=== PATIENT | male | born 1990 | race Caucasian/White ===

== ENCOUNTER 2017-07-17 14:27 | Emergency (ER) | payer OTHER ==
[~2017-07-17] VITALS: Ht 167.6 cm; Wt 100.0 kg
[2017-07-17] MEDS ORDERED: ADDERALL30 MG PO (14:56)
[2017-07-17] MEDS ORDERED: [UNRECOGNIZED DRUG - REMARK] PO (14:57)
[2017-07-17] MEDS ORDERED: ANXIETY MED PO (14:58)
[2017-07-17 15:57] VITALS: BP 135/64
== END 2017-07-17 16:03 | disposition home or self-care (01) | DRG 103 ==
LOC: ED 14:27
DX: R51 Headache (principal); F17.290 Nicotine dependence, other tobacco product, uncomplicated; F99 Mental disorder, not otherwise specified; F90.9 Attention-deficit hyperactivity disorder, unspecified type; W55.22XA Struck by cow, initial encounter; Y92.79 Other farm location as the place of occurrence of the external cause; Y99.0 Civilian activity done for income or pay